=== PATIENT | male | born 1975 | race Caucasian/White ===

== ENCOUNTER 2016-08-31 10:37 | Emergency (ER) | payer SELFPAY ==
--- NOTE | 2016-08-31 11:01 | ED.PDOC ---
History of Present Illness - General Chief Complaint: Upper Extremity Injury Stated Complaint: headache and numbness right lower extremity Time Seen by Provider: 08/31/16 10:46 Source: patient Exam Limitations: no limitations - History of Present Illness Initial Comments: Patient stated that his right upper extremity started getting numb yesterday as well as dull headache left side of his head which comes and goes.Denies weakness slurred speech .No history of recent trauma. Timing/Duration: other - 2 days ago Severity: moderate Improving Factors: nothing Worsening Factors: nothing Associated Symptoms: headaches Allergies/Adverse Reactions: Allergies NO KNOWN ALLERGY Allergy (Verified 02/14/16 22:18) Home Medications: Ambulatory Orders Albuterol Inhaler [Ventolin Hfa Inhaler] 1 puff INH Q6HRS PRN #120 inh 06/28/15 Azithromycin 500 mg PO DAILY #7 tab 06/28/15 Benzonatate Perles [Tessalon Perles] 100 mg PO TID #10 cap 06/28/15 Prednisone [Deltasone] 20 mg PO BID #7 tab 06/28/15 Amoxicillin 875 mg PO BID #20 tab 10/18/15 Tramadol HCl [Ultram] 50 mg PO Q6HRS PRN #30 tab 10/18/15 Furosemide [Lasix] 20 mg PO DAILY #5 tab 02/14/16 Potassium Chloride [K-Tab] 10 meq PO BID #20 tab 02/14/16 Amoxicillin [Amoxil] 1,000 mg PO BID #60 cap 08/31/16 Gabapentin 300 mg PO BID #30 cap 08/31/16 Lisinopril & Hydrochlorothiazi [Zestoretic 20-25 mg] 1 tab PO DAILY 08/31/16 Meloxicam 15 mg PO DAILY 08/31/16 Review of Systems - Review of Systems Constitutional: States: no symptoms reported EENTM: States: no symptoms reported Respiratory: States: no symptoms reported Cardiology: States: no symptoms reported Gastrointestinal/Abdominal: States: no symptoms reported Genitourinary: States: no symptoms reported Musculoskeletal: States: no symptoms reported Skin: States: rash Neurological: States: headache, numbness, paresthesia Endocrine: States: no symptoms reported Hematologic/Lymphatic: States: no symptoms reported Past Medical History (General) - Patient Medical History Hx Seizures: No Hx Stroke: No Hx Dementia: No Hx Asthma: No Hx of COPD: No Hx Cardiac Disorders: No Hx Congestive Heart Failure: No Hx Pacemaker: No Hx Hypertension: Yes Hx Thyroid Disease: No Hx Diabetes: No Hx Gastroesophageal Reflux: Yes Hx Renal Disease: No Hx Cancer: No Hx of HIV: No Hx Hepatitis C: No Hx MRSA: No Hx Other PMH: Yes - psoriasis Hx Other - free text: bilateral carpal tunnel syndrome - Vaccination History Hx Tetanus, Diphtheria Vaccination: Yes Hx Influenza Vaccination: No Hx Pneumococcal Vaccination: Yes - Social History Hx Tobacco Use: Yes Hx Chewing Tobacco Use: No Hx Alcohol Use: No Hx Substance Use: No Hx Substance Use Treatment: No Hx Depression: No Hx Physical Abuse: No Hx Emotional Abuse: No Hx Suspected Abuse: No - Activities of Daily Living Patient Lives Alone: No - lives with family,medically disabled - Female History Patient : No Family Medical History - Family History Father Family History: Unknown Living Status: Cause of : M.I. Hx Family Congestive Heart Failure: Yes Hx Family Hypertension: Yes Hx Family;Other: psoriasis Physical Exam - Physical Exam General Appearance: Alert, No apparent distress Eye Exam: bilateral normal Ears, Nose, Throat: hearing grossly normal, normal ENT inspection, normal pharynx Neck: non-tender, full range of motion, supple Respiratory: chest non-tender, lungs clear, normal breath sounds, no respiratory distress Cardiovascular/Chest: normal peripheral pulses, regular rate, rhythm, no edema, no gallop, no JVD, no murmur Peripheral Pulses: radial,right: 2+, radial,left: 2+ Gastrointestinal/Abdominal: normal bowel sounds, non tender, soft, no organomegaly, no pulsatile mass Extremity: normal range of motion, non-tender, normal inspection Neurologic: no motor/sensory deficits, alert, normal mood/affect, oriented x 3, other - pronator drift negative,romberg negative Skin Exam: normal color, warm/dry, cyanosis, other - whitish scaly lesion forehead face arms Lymphatic: no adenopathy Progress - Progress Progress: 08/31/16 12:03 08/31/16 11:02 URINE DRUG SCREEN, 7 ASSAY Stat URINALYSIS Stat 08/31/16 11:03 IV Care:Saline Lock per Protoc QSHIFT 08/31/16 11:15 EKG STAT 08/31/16 11:35 COMPLETE METABOLIC PROFILE Stat THYROID STIMULATING HORMONE Stat ERYTHROCYTE SEDIMENTATION RATE Stat Laboratory Results WBC 10.0 K/mm3 (4.8-10.8) 08/31/16 11:35 RBC 6.20 M/mm3 (4.70-6.10) H 08/31/16 11:35 Hgb 18.6 gm/dL (14.0-18.0) H 08/31/16 11:35 Hct 54.9 % (42.0-52.0) H 08/31/16 11:35 MCV 88.6 fl (80.0-94.0) 08/31/16 11:35 MCH 30.0 pg (27.0-31.0) 08/31/16 11:35 MCHC 33.8 g/dL (33.0-37.0) 08/31/16 11:35 RDW 14.7 % (11.5-14.5) H 08/31/16 11:35 Plt Count 237 K/mm3 (130-400) 08/31/16 11:35 MPV 9.5 fl (7.40-10.4) 08/31/16 11:35 Absolute Neuts (auto) 7.20 K/uL (1.8-6.8) H 08/31/16 11:35 Absolute Lymphs (auto) 1.70 K/uL (1.0-3.4) 08/31/16 11:35 Absolute Monos (auto) 0.70 K/uL (0.2-0.8) 08/31/16 11:35 Absolute Eos (auto) 0.30 K/uL (0.0-0.4) 08/31/16 11:35 Absolute Basos (auto) 0.10 K/uL (0.0-0.1) 08/31/16 11:35 Neutrophils % 72.0 % (42.0-78.0) 08/31/16 11:35 Lymphocytes % 16.7 % (20.0-50.0) L 08/31/16 11:35 Monocytes % 7.4 % (2.0-9.0) 08/31/16 11:35 Eosinophils % 2.8 % (1.0-5.0) 08/31/16 11:35 Basophils % 1.1 % (0.0-2.0) 08/31/16 11:35 Sodium 136 mmol/L (135-145) 08/31/16 11:35 Potassium 3.7 mmol/L (3.6-5.0) 08/31/16 11:35 Chloride 99 mmol/L (101-111) L 08/31/16 11:35 Carbon Dioxide 28 mmol/L (21-31) 08/31/16 11:35 Anion Gap 12.7 (12-18) 08/31/16 11:35 BUN 18 mg/dL (7-18) 08/31/16 11:35 Creatinine 1.16 mg/dL (0.6-1.3) 08/31/16 11:35 BUN/Creatinine Ratio 15.5 (10-20) 08/31/16 11:35 Random Glucose 101 mg/dL (70-105) 08/31/16 11:35 Serum Osmolality 274.0 mOsm/L (275-295) L 08/31/16 11:35 Calcium 9.4 mg/dL (8.4-10.2) 08/31/16 11:35 Total Bilirubin 0.5 mg/dL (0.2-1.0) 08/31/16 11:35 AST 25 IU/L (10-42) 08/31/16 11:35 ALT 39 IU/L (10-60) 08/31/16 11:35 Alkaline Phosphatase 66 IU/L (42-121) 08/31/16 11:35 Serum Total Protein 7.3 gm/dL (6.4-8.2) 08/31/16 11:35 Albumin 4.0 g/dl (3.2-5.5) 08/31/16 11:35 Globulin 3.3 gm/dL (2.3-3.5) 08/31/16 11:35 Albumin/Globulin Ratio 1.2 (1.1-1.9) 08/31/16 11:35 - EKG/XRAY/CT CT: head-w/o contrast-no acute intracranial abnormality noted Departure - Departure Clinical Impression: Neuropathy of right radial nerve, Sinusitis, maxillary, chronic Head pain cephalgia Qualifiers: Headache type: unspecified Headache chronicity pattern: unspecified pattern Intractability: not intractable Qualifier Code: (R51) Headache Time of Disposition: 12:37 Disposition: Discharge to Home or Self Care Condition: Good Prescriptions: Amoxicillin [Amoxil] 1,000 mg PO BID #60 cap Gabapentin 300 mg PO BID #30 cap Home Medications: Ambulatory Orders Albuterol Inhaler [Ventolin Hfa Inhaler] 1 puff INH Q6HRS PRN #120 inh 06/28/15 Azithromycin 500 mg PO DAILY #7 tab 06/28/15 Benzonatate Perles [Tessalon Perles] 100 mg PO TID #10 cap 06/28/15 Prednisone [Deltasone] 20 mg PO BID #7 tab 06/28/15 Amoxicillin 875 mg PO BID #20 tab 10/18/15 Tramadol HCl [Ultram] 50 mg PO Q6HRS PRN #30 tab 10/18/15 Furosemide [Lasix] 20 mg PO DAILY #5 tab 02/14/16 Potassium Chloride [K-Tab] 10 meq PO BID #20 tab 02/14/16 Amoxicillin [Amoxil] 1,000 mg PO BID #60 cap 08/31/16 Gabapentin 300 mg PO BID #30 cap 08/31/16 Lisinopril & Hydrochlorothiazi [Zestoretic 20-25 mg] 1 tab PO DAILY 08/31/16 Meloxicam 15 mg PO DAILY 08/31/16 Additional Instructions: FOLLOW UP WITH PRIMARY MD IN ONE WEEK FOR REFERRAL TO NEUROLOGIS FOR FURTHER EVALUATION
[2016-08-31 11:17] VITALS: TEMP 99
--- NOTE | 2016-08-31 11:34 | CT ---
EXAM DESCRIPTION: CT HEAD WITHOUT IV CONTRAST CLINICAL HISTORY: headache COMPARISON: None. TECHNIQUE: Noncontrast transaxial CT images of the head are obtained from base to vertex. CT scan was done according to ALARA (As Low as Reasonably Achievable). FINDINGS: The midline structures are not displaced. The sulci are age appropriate. The lateral, third, and fourth ventricles are normal in size, shape, and anatomic positioning. There is no evidence of mass, mass effect, hydrocephalus, or acute intracranial hemorrhage. No abnormal extra axial fluid collections are seen. Normal curtis-white differentiation is seen. The visualized bone windows show no depressed skull fracture or significant abnormality. Complete opacification of the left maxillary sinus with periosteal thickening is seen suggesting chronic sinusitis. IMPRESSION: 1. No acute abnormality is seen on noncontrast CT of the head. 2. Opacification of the left maxillary sinus with periosteal thickening consistent with chronic sinusitis. Electronically signed by: David Felix MD 08/31/2016 11:32
[2016-08-31] MEDS ORDERED: ORPHENADRINE CITRATE 30 MG/ML AMP IM ONE (12:30)
[2016-08-31] MEDS ORDERED: KETOROLAC TROMETHAMINE INJ 30 MG/ML VIAL IM ONE (12:30)
[2016-08-31] MEDS ORDERED: diphenhydrAMINE HCL 25 MG CAP PO ONE (12:31)
[2016-08-31 13:38] VITALS: O2SAT 98
[2016-08-31 13:41] VITALS: BP 152/94
== END 2016-08-31 13:41 | disposition home or self-care (01) ==
LOC: ER 10:37
DX: R51 Headache (principal); J32.0 Chronic maxillary sinusitis; M54.10 Radiculopathy, site unspecified
CPT/HCPCS: 36415; 70450; 80053; 81001; 84443; 85025; 85651; 93005; G0479; J1885; J2360; Q0163